=== PATIENT | female | born 1990 | race Caucasian/White ===

== ENCOUNTER → 2016-06-06 | Outpatient (CLI) | payer OTHER ==
[~2016-06-06] MED LIST: ACET50TA PO; IBUP-1114 PO; STUACAP PO
--- NOTE | 2016-06-06 14:42 | REP ---
LEFT WRIST: Four views. HISTORY: Left wrist pain. FINDINGS: Four views of the left wrist demonstrate normal bones joints and soft tissues. No evidence of fracture or subluxation is seen. IMPRESSION: Negative left wrist views. Signed by Dom Ovalle MD 06/06/2016 02:57 P
--- NOTE | 2016-06-06 15:07 | REP ---
LEFT FOREARM: Two views. HISTORY: Pain. FINDINGS: AP and lateral views of the left forearm demonstrate normal bones, joints and soft tissues. IMPRESSION: Negative left forearm views. Signed by Dom Ovalle MD 06/06/2016 04:01 P
== END ==
LOC: M LRY 14:08
PROVIDERS: ATTEND Physician Assistant
DX: M25.532 Pain in left wrist (principal)

== ENCOUNTER → 2016-06-19 | Outpatient (REF) | payer OTHER | LOC: M LAB REF 12:50 | PROVIDERS: ATTEND Obstetrics & Gynecology | DX: R30.0 Dysuria (principal); Z12.4 Encounter for screening for malignant neoplasm of cervix; Z11.3 Encounter for screening for infections with a predominantly sexual mode of transmission ==

== ENCOUNTER 2018-05-30 00:46 | Emergency (ER) | payer OTHER, SELFPAY ==
[~2018-05-30] VITALS: Ht 152.4 cm; Wt 65.9 kg
[~2018-05-30 00:46] MED LIST changes: -ACET50TA PO; +MAPA500T2 PO
[2018-05-30] MEDS ORDERED: birth control PO (01:14)
[2018-05-30] MEDS ORDERED: SUDATAB15 PO (01:14)
[2018-05-30] MEDS ORDERED: CIPRODEX AS (02:42)
[2018-05-30 02:48] VITALS: BP 118/65
== END 2018-05-30 02:50 | disposition home or self-care (01) ==
LOC: M ED 00:46
DX: H60.92 Unspecified otitis externa, left ear (principal); Z72.0 Tobacco use; Z79.3 Long term (current) use of hormonal contraceptives; Z79.899 Other long term (current) drug therapy; Z88.2 Allergy status to sulfonamides

== ENCOUNTER → 2019-01-12 | Outpatient (CLI) | payer OTHER ==
[~2019-01-12] MED LIST changes: +CIPRODEX AS; +SUDATAB15 PO; +birth control PO
--- NOTE | 2019-01-12 11:45 | REP ---
PELVIC SONOGRAPHY: HISTORY: Dyspareunia FINDINGS: Transabdominal scanning is performed. Uterine dimensions are normal at 6.9 x 3.1 x 4.3 cm. Endometrial echo 0.3 cm thick. No focal uterine mass is seen. No free fluid is noted. Normal ovaries are seen bilaterally. Right ovary dimensions are 2.0 x 0.8 x 1.6 cm. Left ovary measures 2.0 x 1.1 x 1.8 cm. Visualized bladder naranjo are smooth. IMPRESSION: Normal pelvic sonography. Electronically Signed by Dom Ovalle MD 01/12/2019 01:02 P
== END ==
LOC: M RAD 09:12
PROVIDERS: ATTEND Advanced Practice Midwife
DX: N94.12 Deep dyspareunia (principal); R68.82 Decreased libido

== ENCOUNTER → 2019-01-27 | Outpatient (REF) | payer OTHER ==
[2019-01-27 16:31] LABS: CHLAMYDIA DNA AMPLIFICATION NEGATIVE (NEGATIVE); GC DNA AMPLIFICATION NEGATIVE (NEGATIVE)
== END ==
LOC: M LAB REF 13:09
PROVIDERS: ATTEND Advanced Practice Midwife
DX: Z12.4 Encounter for screening for malignant neoplasm of cervix (principal); R87.613 High grade squamous intraepithelial lesion on cytologic smear of cervix (HGSIL)
CPT/HCPCS: 87661; G0123

== ENCOUNTER → 2019-02-03 | Outpatient (REF) | payer OTHER | LOC: M LAB REF 16:54 | PROVIDERS: ATTEND Obstetrics & Gynecology | DX: R87.613 High grade squamous intraepithelial lesion on cytologic smear of cervix (HGSIL) (principal) ==

== ENCOUNTER → 2019-02-24 | Outpatient (REF) | payer OTHER | LOC: M LAB REF 17:02 | PROVIDERS: ATTEND Advanced Practice Midwife | DX: R39.15 Urgency of urination (principal) ==

== ENCOUNTER → 2019-04-10 | Outpatient (REF) | payer OTHER, MEDICAID | LOC: M WHC 13:37 | PROVIDERS: ATTEND Obstetrics & Gynecology | DX: D06.9 Carcinoma in situ of cervix, unspecified (principal) ==

== ENCOUNTER → 2020-02-28 | Outpatient (CLI) | payer OTHER, MEDICAID | LOC: M LABSMTC 11:20 | PROVIDERS: ATTEND Anesthesiology | DX: Z01.812 Encounter for preprocedural laboratory examination (principal); Z20.828 Contact with and (suspected) exposure to other viral communicable diseases | CPT/HCPCS: C9803; U0003 ==

== ENCOUNTER 2020-03-04 13:14 | Day surgery (SDC) | payer OTHER ==
[~2020-03-04] VITALS: Ht 152.4 cm; Wt 60.3 kg
[~2020-03-04 13:14] MED LIST changes: +LIDOCAINE 2% 100MG/5ML SDV (FOR ANES.) As Ordered ONE; +propofoL 200 MG/20 ML VIAL As Ordered ONE
[2020-03-04] MEDS ORDERED: fentaNYL 100 MCG/2 ML INJECTION (J3010) As Ordered ONE (13:59)
[2020-03-04] MEDS ORDERED: NS 1,000 ML IV ONE (14:30)
--- NOTE | 2020-03-04 14:40 | ROOR ---
Patient Name: Roula Melgar Procedure Date: 03/04/2020 2:28 PM Date of : 1990 Age: 29 Room: [facility] Gender: Female Note Status: Finalized Procedure: Upper GI endoscopy Indications: Dyspepsia Providers: Olayinka PASTOR MD Referring MD: Caro Houston NP Requesting Provider: Medicines: Monitored Anesthesia Care Complications: No immediate complications. Procedure: Pre-Anesthesia Assessment: - The heart rate, respiratory rate, oxygen saturations, blood pressure, adequacy of pulmonary ventilation, and response to care were monitored throughout the procedure. The Endoscope was introduced through the mouth, and advanced to the second part of duodenum. The upper GI endoscopy was accomplished without difficulty. The patient tolerated the procedure well. Findings: The esophagus was normal. The stomach was normal. The examined duodenum was normal. Impression: - Normal esophagus. - Normal stomach. - Normal examined duodenum. - No specimens collected. Recommendation: - Observe patient's clinical course. Olayinka Pastor MD Olayinka PASTOR MD 03/04/2020 2:39:38 PM Electronically signed by Olayinka PASTOR MD Number of Addenda: 0 Note Initiated On: 03/04/2020 2:28 PM Estimated Blood Loss: Estimated blood loss: none.
--- NOTE | 2020-03-04 14:59 | ROOR ---
Patient Name: Roula Melgar Procedure Date: 03/04/2020 2:29 PM Date of : 1990 Age: 29 Room: [facility] Gender: Female Note Status: Finalized Procedure: Colonoscopy Indications: Generalized abdominal pain, Suspected irritable bowel syndrome, Change in bowel habits Providers: Olayinka PASTOR MD Referring MD: Caro Houston NP Requesting Provider: Medicines: Monitored Anesthesia Care Complications: No immediate complications. Procedure: Pre-Anesthesia Assessment: - The heart rate, respiratory rate, oxygen saturations, blood pressure, adequacy of pulmonary ventilation, and response to care were monitored throughout the procedure. The Colonoscope was introduced through the anus and advanced to 10 cm into the ileum. The colonoscopy was performed without difficulty. The patient tolerated the procedure well. The quality of the bowel preparation was good. Findings: The perianal and digital rectal examinations were normal. A diminutive polyp was found in the sigmoid colon. The polyp was sessile. The polyp was removed with a cold snare. Resection and retrieval were complete. Small Internal Hemorrhoids. Retroflexion in the right colon was performed. The exam was otherwise normal throughout the examined colon. The terminal ileum appeared normal. Impression: - One diminutive polyp in the sigmoid colon, removed with a cold snare. Resected and retrieved. - Very small Internal Hemorrhoids. - The colon is otherwise normal. - The examined portion of the ileum was normal. - Irritable bowel syndrome. Recommendation: - Use fiber, for example Citrucel, Fibercon, Konsyl or Metamucil. - Continue present medications. Olayinka Pastor MD Olayinka PASTOR MD 03/04/2020 2:59:12 PM Electronically signed by Olayinka PASTOR MD Number of Addenda: 0 Note Initiated On: 03/04/2020 2:29 PM Estimated Blood Loss: Estimated blood loss: none.
[2020-03-04 15:20] VITALS: BP 124/80
== END 2020-03-04 15:35 | disposition home or self-care (01) ==
LOC: M OPP 13:14
PROVIDERS: ATTEND Internal Medicine Gastroenterology
DX: R10.84 Generalized abdominal pain (principal); R19.4 Change in bowel habit; R10.13 Epigastric pain; K63.5 Polyp of colon; K64.8 Other hemorrhoids; K58.9 Irritable bowel syndrome, unspecified; F17.210 Nicotine dependence, cigarettes, uncomplicated; Z88.2 Allergy status to sulfonamides; Z79.899 Other long term (current) drug therapy
CPT/HCPCS: 43235; 45385; 88305; J3010

== ENCOUNTER → 2020-05-08 | Outpatient (REF) | payer OTHER ==
[~2020-05-08] MED LIST changes: -LIDOCAINE 2% 100MG/5ML SDV (FOR ANES.) As Ordered ONE; -propofoL 200 MG/20 ML VIAL As Ordered ONE
== END ==
LOC: M SFHCWAGY 18:18
PROVIDERS: ATTEND Obstetrics & Gynecology
DX: Z01.419 Encounter for gynecological examination (general) (routine) without abnormal findings (principal)
CPT/HCPCS: 87624; G0123

== ENCOUNTER → 2020-06-14 | Outpatient (REF) | payer OTHER ==
[~2020-06-14] MED LIST changes: +CIPR7.5D5 AS; -CIPRODEX AS
[2020-06-14 15:41] LABS: CHLAMYDIA DNA AMPLIFICATION NEGATIVE (NEGATIVE); GC DNA AMPLIFICATION NEGATIVE (NEGATIVE)
== END ==
LOC: M SFHCWAGY 13:35
PROVIDERS: ATTEND Nurse Practitioner Women's Health
DX: Z11.3 Encounter for screening for infections with a predominantly sexual mode of transmission (principal); N76.0 Acute vaginitis; B96.89 Other specified bacterial agents as the cause of diseases classified elsewhere

== ENCOUNTER → 2021-07-02 | Outpatient (REF) | payer OTHER | LOC: M SFHCWAGY 10:22 | PROVIDERS: ATTEND Obstetrics & Gynecology | DX: Z12.4 Encounter for screening for malignant neoplasm of cervix (principal) ==

== ENCOUNTER → 2021-07-11 | Outpatient (CLI) | payer OTHER | LOC: M WHC 10:05 | PROVIDERS: ATTEND Obstetrics & Gynecology | DX: R10.2 Pelvic and perineal pain (principal) ==

== ENCOUNTER → 2021-09-03 | Outpatient (CLI) | payer OTHER ==
[2021-09-03 18:09] LABS: FREE T4 1.08 NG/DL (0.76-1.46); PROLACTIN 4.2 NG/ML; THYROID STIMULATING HORMONE 0.945 uIU/ML (0.358-3.740)
== END ==
LOC: M PLALAB 12:06
PROVIDERS: ATTEND Obstetrics & Gynecology
DX: N92.6 Irregular menstruation, unspecified (principal)

== ENCOUNTER → 2021-09-23 | Outpatient (CLI) | payer OTHER ==
[2021-09-23 14:55] LABS: GC DNA AMPLIFICATION NEGATIVE (NEGATIVE)
== END ==
LOC: M PLALAB 12:03
PROVIDERS: ATTEND Obstetrics & Gynecology
DX: R30.0 Dysuria (principal)

== ENCOUNTER → 2022-11-16 | Outpatient (CLI) | payer OTHER | LOC: M RAD 16:16 | PROVIDERS: ATTEND Nurse Practitioner Family | DX: R10.2 Pelvic and perineal pain (principal) ==

== ENCOUNTER → 2023-01-11 | Outpatient (REF) | payer OTHER | LOC: M SFHCWAGY 18:20 | PROVIDERS: ATTEND Obstetrics & Gynecology | DX: Z12.4 Encounter for screening for malignant neoplasm of cervix (principal) ==

== ENCOUNTER 2023-07-15 06:20 | Day surgery (SDC) | payer OTHER ==
[~2023-07-15] VITALS: Ht 152.4 cm; Wt 68.0 kg
[~2023-07-15 06:20] MED LIST changes: +APAP325T4 PO
[2023-07-15] MEDS ORDERED: LR 1,000 ML IV SCH ×2 (07:00→08:35)
[2023-07-15 07:36] LABS: HEMATOCRIT 36.7 % (36.0-47.0); HEMOGLOBIN 12.1 g/dl (12.0-15.5); MEAN CORPUSCULAR HEMOGLOBIN 28.9 pg (27.0-33.0); MEAN CORPUSCULAR VOLUME 87.6 fl (80.0-96.0); PLATELET COUNT, AUTOMATED 247 10^3/uL (150-450); RED BLOOD COUNT 4.19 10^6/uL (4.00-5.40); WHITE BLOOD COUNT 6.8 10^3/uL (4.0-10.0)
[2023-07-15] MEDS ORDERED: fentaNYL 100 MCG/2 ML INJECTION IV PRN (08:35)
[2023-07-15] MEDS ORDERED: ONDANSETRON 4MG 2ML VIAL IV PRN (08:35)
[2023-07-15] MEDS ORDERED: KETOROLAC 60MG 2ML VIAL As Ordered ONE (08:51)
[2023-07-15] MEDS ORDERED: ROCURONIUM BROMIDE 50MG/5ML VIAL As Ordered ONE (08:51)
[2023-07-15] MEDS ORDERED: MIDAZOLAM INJ 2MG/2ML VIAL As Ordered ONE (08:51)
[2023-07-15] MEDS ORDERED: ONDANSETRON 4MG 2ML VIAL As Ordered ONE (08:51)
[2023-07-15] MEDS ORDERED: LIDOCAINE 2% 100MG/5ML SDV (FOR ANES.) As Ordered ONE (08:51)
[2023-07-15] MEDS ORDERED: propofoL 200 MG/20 ML VIAL As Ordered ONE (08:51)
[2023-07-15] MEDS ORDERED: fentaNYL 250 MCG/5 ML INJECTION As Ordered ONE (08:51)
[2023-07-15] MEDS ORDERED: SUGAMMADEX SODIUM 500 MG/5 ML VIAL (BRIDION) As Ordered ONE (08:51)
[2023-07-15] MEDS ORDERED: ACETAMINOPHEN 1000MG 100ML IV BAG As Ordered ONE (08:51)
[2023-07-15] MEDS ORDERED: PERCOCET 5MG/325MG TAB PO PRN (09:40)
[2023-07-15 09:44] VITALS: BP 132/82; TEMP 97.8; O2SAT 98
[2023-07-15] MEDS ORDERED: KETOROLAC 30 MG/ML 1ML VIAL IV SCH (15:00)
== END 2023-07-15 10:00 | disposition home or self-care (01) ==
LOC: M SDC 06:20
PROVIDERS: ATTEND Obstetrics & Gynecology
DX: Z30.2 Encounter for sterilization (principal); Z88.2 Allergy status to sulfonamides
CPT/HCPCS: 36415; 58661; 81025; 85027; 86850; 86900; 86901; J0131; J0665; J1100; J1885; J2250; J2405; J3010